=== PATIENT | female | born 1940 | race Two or more races ===

== ENCOUNTER 2020-10-01 12:14 | Emergency (ER) | payer MEDICAID, OTHER ==
[~2020-10-01] VITALS: Ht 152.4 cm; Wt 68.0 kg
[2020-10-01 14:27] VITALS: BP 146/71
== END 2020-10-01 15:24 | disposition home or self-care (01) ==
LOC: ER 12:14
DX: S20.211A Contusion of right front wall of thorax, initial encounter (principal); S01.531A Puncture wound without foreign body of lip, initial encounter; I10 Essential (primary) hypertension; W18.39XA Other fall on same level, initial encounter; Y93.89 Activity, other specified; Y92.89 Other specified places as the place of occurrence of the external cause; Y99.8 Other external cause status
CPT/HCPCS: 71101